=== PATIENT | male | born 1990 | race Caucasian/White ===

== ENCOUNTER 2016-04-27 14:07 | Emergency (ER) | payer SELFPAY ==
[~2016-04-27] VITALS: Ht 180.3 cm; Wt 104.0 kg
[~2016-04-27 14:07] MED LIST: PROT40TA PO
[2016-04-27 14:10] VITALS: BP 128/80; PULSE 88; RESP 16; TEMP 98.8; O2SAT 98
[2016-04-27] MEDS ORDERED: IBUPROFEN 800 MG TAB PO ONE (14:30)
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
== END 2016-04-27 15:10 | disposition home or self-care (01) ==
LOC: PHEFT 14:07
DX: S10.93XA Contusion of unspecified part of neck, initial encounter (principal); Y04.2XXA Assault by strike against or bumped into by another person, initial encounter
CPT/HCPCS: 72040; 99284

== ENCOUNTER 2016-11-18 13:33 | Emergency (ER) | payer SELFPAY ==
[2016-11-18 14:08] VITALS: BP 141/66; PULSE 89; RESP 18; TEMP 98.1; O2SAT 99
--- NOTE | 2016-11-18 14:45 | PD ---
HPI Chief Complaint: ENT Complaint Time Seen by Provider: 14:30 Travel History International Travel<30 days: No Contact w/Intl Traveler<30days: No Traveled to known affect area: No History of Present Illness HPI 26-year-old male with chief complaint of sore throat times one day. Patient reports possible exposure to strep throat. He reports some associated nasal congestion. He denies fever, chills, nausea, vomiting, abdominal pain. Symptoms severity mild. No aggravating or alleviating factors. PFSH Past Medical History Asthma: Yes Heart Rhythm Problems: Yes (HEART MURMUR) Cardiovascular Problems: Yes (HEART MURMUR) Diminished Hearing: No Musculoskeletal: Yes ("I HAVE BAD CARPEL TUNNEL") Respiratory: Yes (ASTHMA) Immunizations Current: No Pneumonia: Yes Influenza Vaccination: No Past Surgical History Ear Surgery: Yes ("TUBES IN MY EARS A BABY") Other Surgery: Yes (ESOPHAGEAL) Family History Family Hypercholesterolemia: Yes (MOTHER) Social History Alcohol Use: Yes (RARE) Tobacco Use: No Substance Use: No Allergies-Medications (Allergen,Severity, Reaction): Coded Allergies: Imitrex (Verified Allergy, Severe, Anaphylaxis, 11/18/16) Singulair (Verified Allergy, Unknown, VOMITING, 11/18/16) Reported Meds & Prescriptions Reported Meds & Active Scripts Active No Active Prescriptions or Reported Medications Review of Systems Except as stated in HPI: all other systems reviewed are Neg General / Constitutional: No: Fever Eyes: No: Visual changes HENT: Positive: Sore Throat, No: Headaches Physical Exam Narrative GENERAL: Well-nourished, well-developed patient. SKIN: Focused skin assessment warm/dry. HEAD: Normocephalic. EYES: No scleral icterus. No injection or drainage. THROAT: Posterior oropharynx erythema with mild tonsillar swelling without exudate. NECK: Supple, trachea midline. No JVD or lymphadenopathy. CARDIOVASCULAR: Regular rate and rhythm without murmurs, gallops, or rubs. RESPIRATORY: Breath sounds equal bilaterally. No accessory muscle use. GASTROINTESTINAL: Abdomen soft, non-tender, nondistended. MUSCULOSKELETAL: No cyanosis, or edema. BACK: Nontender without obvious deformity. No CVA tenderness. Data Data Last Documented VS Vital Signs Date Time Temp Pulse Resp B/P Pulse Ox O2 Delivery O2 Flow Rate FiO2 11/18/16 14:08 98.1 89 18 141/66 99 Orders Group A Rapid Strep Screen (11/18/16 14:59) Strep Culture (Group A) (11/18/16 15:00) MDM Medical Decision Making Medical Screen Exam Complete: Yes Emergency Medical Condition: Yes Differential Diagnosis Viral Pharyngitis, strep pharyngitis, URI Narrative Course 26-year-old male with chief complaint of sore throat times one day. Possible strep exposure. Patient's physical exam is reassuring. Rapid strep screen negative Patient will be treated for viral uri Diagnosis Primary Impression: URI (upper respiratory infection) Qualified Code: J06.9 - Upper respiratory tract infection, unspecified type Referrals: Primary Care Physician Additional Instructions: Stay well hydrated by drinking plenty of fluids. Take [id number] Motrin and/or Tylenol as needed for pain and fever. Scripts No Active Prescriptions or Reported Meds Disposition: 01 DISCHARGE HOME Condition: Stable Antonia Butts Nov 18, 2016 14:45
== END 2016-11-18 15:51 | disposition home or self-care (01) ==
LOC: PHEFT 13:33
DX: J06.9 Acute upper respiratory infection, unspecified (principal); Z87.09 Personal history of other diseases of the respiratory system; Z86.79 Personal history of other diseases of the circulatory system; Z87.39 Personal history of other diseases of the musculoskeletal system and connective tissue
CPT/HCPCS: 87081; 87880; 99283

== ENCOUNTER 2017-10-05 16:49 | Emergency (ER) | payer SELFPAY ==
[~2017-10-05] VITALS: Ht 182.9 cm; Wt 98.0 kg
[2017-10-05 17:26] VITALS: BP 167/80; PULSE 92; RESP 16; TEMP 98.6; O2SAT 98
[2017-10-05 17:56] LABS: BILIRUBIN, URINE NEG (NEG); BLOOD, URINE SMALL (NEG); GLUCOSE,URINE NEG (NEG); KETONE, URINE NEG (NEG); NITRITE,URINE NEG (NEG); URINE COLOR Straw (YELLW/STRAW); URINE LEUKOCYTE ESTERASE NEG (NEG)
--- NOTE | 2017-10-05 20:16 | PD ---
HPI Chief Complaint: Complaint Time Seen by Provider: 20:02 Travel History International Travel<30 days: No Contact w/Intl Traveler<30days: No Traveled to known affect area: No History of Present Illness HPI 27-year-old white male presents emergency department for evaluation of hematuria. The patient's is present and assist with the history. Patient states that he was having intercourse with his this morning around 5 AM. During intercourse he developed pain and burning in the tip of his penis. He states that this continued during intercourse for approximately 10 minutes. He states that after he ejaculated he had gone to the bathroom. He states that he when he urinated it appeared that he had urinated out a blood clot. Since then he has had intermittent episodes of bright red hematuria. He states that it was much worse earlier today and has slowly improved. He states that he has not noticed blood now for the last few hours but came in to be evaluated. He still has some mild discomfort in his penis. He denies any fever chills. No back pain. No abdominal pain. No testicle pain. He has been eating and drinking normally. Symptoms initially were moderate but are mild now. Exacerbated by intercourse. No alleviating factor. No history of urinary tract or STDs in the past. PFSH Past Medical History Asthma: Yes Heart Rhythm Problems: Yes (HEART MURMUR) Cardiovascular Problems: Yes (HEART MURMUR) Diminished Hearing: No Musculoskeletal: Yes ("I HAVE BAD CARPEL TUNNEL") Respiratory: Yes (ASTHMA) Immunizations Current: No Pneumonia: Yes Tetanus Vaccination: < 5 Years Past Surgical History Ear Surgery: Yes ("TUBES IN MY EARS A BABY") Other Surgery: Yes (ESOPHAGEAL) Family History Family Hypercholesterolemia: Yes (MOTHER) Social History Alcohol Use: Yes (RARE) Tobacco Use: No Substance Use: No Allergies-Medications (Allergen,Severity, Reaction): Coded Allergies: sumatriptan (Verified Allergy, Severe, Anaphylaxis, 10/05/17) montelukast (Verified Allergy, Unknown, VOMITING, 10/05/17) Reported Meds & Prescriptions Reported Meds & Active Scripts Active No Active Prescriptions or Reported Medications Review of Systems General / Constitutional: No: Fever Eyes: No: Visual changes HENT: No: Headaches Cardiovascular: No: Chest Pain or Discomfort Respiratory: No: Shortness of Breath Gastrointestinal: No: Abdominal Pain Genitourinary: Positive: Urgency, Frequency, Hematuria, No: Dysuria, Nocturia Musculoskeletal: No: Pain Skin: No Rash Neurologic: No: Weakness Psychiatric: No: Depression Endocrine: No: Polydipsia Hematologic/Lymphatic: No: Easy Bruising Physical Exam Narrative GENERAL: Well-developed, well-nourished in no acute distress. Nontoxic appearing. Patient's is in the examination room. HEAD: Normocephalic, atraumatic. EYES: Pupils equal round and reactive. Extraocular motions intact. No scleral icterus. No injection or drainage. ENT: TMs clear without erythema. The external auditory canals clear. Nose: clear . Posterior pharynx is pink and moist. No tonsillar edema or exudate. Uvula midline. Airway patent. NECK: Trachea midline.Supple, nontender, moves head freely. No central bony tenderness or spasm. CARDIOVASCULAR: Regular rate and rhythm without murmurs, gallops, or rubs. RESPIRATORY: Clear to auscultation. Breath sounds equal bilaterally. No wheezes , rales, or rhonchi. GASTROINTESTINAL: Abdomen soft, non-tender, nondistended. No hepato-splenomegaly , or palpable masses. No guarding. EXTREMITIES: No clubbing, cyanosis, or edema. No joint tenderness, effusion, or edema noted. BACK: Nontender without deformity or crepitance. No flank tenderness. GENITOURINARY: Circumcised. Testes descended bilaterally without evidence of rotation. No lesions or erythema. No urethral discharge. Data Data Last Documented VS Vital Signs Date Time Temp Pulse Resp B/P (MAP) Pulse Ox O2 Delivery O2 Flow Rate FiO2 10/05/17 17:26 98.6 92 16 167/80 (109) 98 Orders Orders Urinalysis - C+S If Indicated (10/05/17 17:28) Ed Discharge Order (10/05/17 20:12) Labs Laboratory Tests Test 10/05/17 17:35 Urine Color Straw Urine Turbidity CLEAR Urine pH 6.0 Urine Specific [place] 1.009 Urine Protein NEG mg/dL Urine Glucose (UA) NEG mg/dL Urine Ketones NEG mg/dL Urine Occult Blood SMALL Urine Nitrite NEG Urine Bilirubin NEG Urine Urobilinogen LESS THAN 2 mg/dL Urine Leukocyte Esterase NEG Urine RBC 1 /hpf Urine WBC LESS THAN 1 /hpf Microscopic Urinalysis Comment CULT NOT INDICATED MDM Medical Decision Making Medical Screen Exam Complete: Yes Emergency Medical Condition: Yes Medical Record Reviewed: Yes Interpretation(s) Laboratory Tests Test 10/05/17 17:35 Urine Color Straw Urine Turbidity CLEAR Urine pH 6.0 Urine Specific [place] 1.009 Urine Protein NEG mg/dL Urine Glucose (UA) NEG mg/dL Urine Ketones NEG mg/dL Urine Occult Blood SMALL Urine Nitrite NEG Urine Bilirubin NEG Urine Urobilinogen LESS THAN 2 mg/dL Urine Leukocyte Esterase NEG Urine RBC 1 /hpf Urine WBC LESS THAN 1 /hpf Microscopic Urinalysis Comment CULT NOT INDICATED Differential Diagnosis Differential diagnosis: Urethral injury, kidney stone, UTI Narrative Course Patient's history is consistent with a urethral injury which is minor. He initially had a blood clot followed by a hematuria. The hematuria has much improved. His urinalysis is unremarkable now. The patient is encouraged to increase fluids avoid intercourse for 1 week Diagnosis Primary Impression: Urethral injury Referrals: Tomas Sheikh MD 1 week [facility] 1 week Patient Instructions: General Instructions Additional Instructions: Rest. Increase fluids. Follow-up with urology property utilization manager this week. Return to the ER if any problems. Med/Other Pt SpecificInfo: No Meds Exist/No RX given Scripts No Active Prescriptions or Reported Meds Disposition: 01 DISCHARGE HOME Condition: Sravan Castillo Oct 05, 2017 20:16
== END 2017-10-05 20:30 | disposition home or self-care (01) ==
LOC: NEPD 16:49
DX: S37.30XA Unspecified injury of urethra, initial encounter (principal); R31.9 Hematuria, unspecified; Z88.8 Allergy status to other drugs, medicaments and biological substances; J45.909 Unspecified asthma, uncomplicated; X58.XXXA Exposure to other specified factors, initial encounter
CPT/HCPCS: 81001; 99283